=== PATIENT | female | born 1960 | race Caucasian/White ===

== ENCOUNTER 2017-03-11 16:57 | Emergency (ER) | payer OTHER, BC ==
[~2017-03-11] VITALS: Ht 160 cm; Wt 79.5 kg
[~2017-03-11 16:57] MED LIST: NUCY50TA9 PO; PRED20 PO
[2017-03-11 17:01] VITALS: BP 169/83; PULSE 99; RESP 16; TEMP 98.9; O2SAT 99
[2017-03-11] MEDS ORDERED: OXYC60TA8 PO (17:12)
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
[2017-03-11] MEDS ORDERED: ROBA500T PO (18:24)
[2017-03-11] MEDS ORDERED: KETOROLAC TROMETHAMINE 60 MG/2 ML (IM) VIAL IM ONE (18:30)
== END 2017-03-11 18:35 | disposition home or self-care (01) ==
LOC: PHEFT 16:57
DX: S16.1XXA Strain of muscle, fascia and tendon at neck level, initial encounter (principal); V43.52XA Car driver injured in collision with other type car in traffic accident, initial encounter
CPT/HCPCS: 72125; 96372; 99285; J1885